=== PATIENT | female | born 1985 ===

== ENCOUNTER 2022-02-09 08:01 | Inpatient (IN) ==
[~2022-02-09 08:01] MED LIST: EPHEDrine 50 MG/ML VIAL IVP PRN; Epidural Premix (fent/bupiv) 110 ML EP SCH; Famotidine 20 MG/2 ML VIAL IVP PRN; Lidocaine 1% 20 ML MDV INFILT PRN; Metoclopramide 10 MG/2 ML VIAL IVP PRN; Naloxone 0.4 MG/ML INJ IVP PRN
[2022-02-09] MEDS ORDERED: Ringers Solution, Lactated 1,000 ML IVC SCH (08:15)
[2022-02-09 08:29] LABS: Basophils % 0.3 %; Eosinophils % 0.3 %; Hemoglobin 11.7 g/dL (11.5-15.4); Immature Granulocytes % 0.6 % (0-4); Lymphocytes # 1.6 K/mcL (0.6-4.6); Lymphocytes % 14.3 %; Mean Corpuscular HGB Conc 32.5 g/dL (31.6-35.5); Mean Corpuscular Hemoglobin 31.8 pg (28.0-33.3); Mean Corpuscular Volume 97.8 fL (83.0-100.0); Mean Platelet Volume 10.9 fL (9.4-12.4); Monocytes # 0.7 K/mcL (0.0-1.3); Monocytes % 6.6 %; Neutrophils # 8.7 K/mcL (1.6-8.9); Platelet Count 196 K/mcL (140-400); Red Blood Count 3.68 M/mcL (3.82-4.97); Red Cell Distribution Width 17.4 % (11.5-14.5); Segmented Neutrophils % 77.9 %; White Blood Count 11.2 K/mcL (4.3-11.1)
[2022-02-09 08:36] LABS: Creatinine,Urine 18 mg/dL; Protein/Creatinine Ratio,Urine 0.61 mg/mg (0.00-0.20)
[2022-02-09] MEDS ORDERED: Bupivacaine-MPF 0.25% 10 ML VIAL ONE (08:43)
[2022-02-09] MEDS ORDERED: *HR* FentaNYL (PF) 100 MCG/2 ML VIAL ONE (08:43)
[2022-02-09 08:48] LABS: Amphetamine Screen,Urine Negative ng/mL (Cutoff=1000); Barbiturate Screen,Urine Negative ng/mL (Cutoff=200); Benzodiazepines Screen,Urine Negative ng/mL (Cutoff=200); Cannabinoid Screen,Urine Positive ng/mL (Cutoff = 50); Cocaine Screen,Urine Negative ng/mL (Cutoff= 300); Opiate Screen,Urine Negative ng/mL (Cutoff=300); Phencyclidine Screen,Urine Negative ng/mL (Cutoff=25)
[2022-02-09 08:49] LABS: Alanine Aminotransferase 10 Units/L (7-52); Aspartate Amino Transferase 22 Units/L (13-39); BUN/Creatinine Ratio 20 (6-26); Blood Urea Nitrogen 10 mg/dL (6-20); Lactate Dehydrogenase 242 Units/L (140-271); Uric Acid 4.2 mg/dL (2.3-7.6)
[2022-02-09 10:34] LABS: Bilirubin,Urine Negative (Negative); Blood,Urine Negative (Negative); Clarity,Urine Clear (Clear); Color,Urine Light-Yellow (Yellow); Glucose,Urine (UA) Normal (Normal); Ketones,Urine Negative (Negative); Leukocyte Esterase,Urine Negative (Negative); Nitrite,Urine Negative (Negative); PH,Urine 6.5 pH Units (5.0-8.0); Protein,Urine Negative (Neg-Trace); Specific Gravity,Urine 1.013 (1.010-1.025); Urobilinogen,Urine Normal (Normal)
[2022-02-09 10:45] LABS: Protein/Creatinine Ratio,Urine 0.21 mg/mg (0.00-0.20)
[2022-02-09] MEDS ORDERED: Oxytocin 30 UNIT/503 ML BAG IVC ONE (11:40)
[2022-02-09] MEDS ORDERED: Oxytocin 30 UNIT/503 ML BAG IVC SCH ×3 (12:30→17:29)
[2022-02-09] MEDS ORDERED: EPHEDrine sulfate 50 MG/10 ML VIAL IVP PRN (12:30)
[2022-02-09] MEDS ORDERED: Methylergonovine 0.2 MG/ML AMPUL IM ONE (13:59)
[2022-02-09] MEDS ORDERED: OXYTOCIN/RINGERS LACTATE 10 UNIT/166.6 ML BAG IVC ONE ×2 (15:10→17:29)
[2022-02-09] MEDS ORDERED: Rho Immune Globulin 1,500 UNIT SYRINGE IM PRN ×2 (15:10→17:29)
[2022-02-09] MEDS ORDERED: Lanolin 7 G OINT...G. TP PRN (15:10)
[2022-02-09] MEDS ORDERED: Ondansetron ODT 4 MG TAB.RAPDIS SL PRN ×2 (15:10→17:29)
[2022-02-09] MEDS ORDERED: Benzocaine/Menthol 56 GM AEROSOL SPRAY TP PRN ×2 (15:10→17:29)
[2022-02-09] MEDS ORDERED: Measles/Mumps/Rubella Vacc 0.5 ML VIAL SQ PRN ×2 (15:10→17:29)
[2022-02-09] MEDS ORDERED: Acetaminophen 325 MG TABLET PO SCH (15:15)
[2022-02-09] MEDS ORDERED: Ibuprofen 600 MG TABLET PO SCH ×2 (18:10)
[2022-02-09] MEDS: Acetaminophen 325 MG TABLET PO SCH (19:59)
[2022-02-10 07:37] VITALS: BP 109/69; PULSE 79; TEMP 98; O2SAT 99
[2022-02-10] MEDS ORDERED: Prenatal Vit/FA 1 EACH TABLET PO SCH ×2 (09:00)
[2022-02-10] MEDS: Acetaminophen 325 MG TABLET PO SCH (09:22)
== END 2022-02-10 14:00 | disposition home or self-care (01) | DRG 560 ==
LOC: 1NENULAB → 1NENUOBS 17:29
PROVIDERS: ADMIT Advanced Practice Midwife; ATTEND Advanced Practice Midwife